=== PATIENT | female | born 1990 | race Asian ===

== ENCOUNTER 2024-08-16 20:35 | Emergency (ER) | payer OTHER, SELFPAY ==
--- NOTE | ~2024-08-16 | CT_ITS ---
EXAMINATION: CT abdomen pelvis wo con DATE: 08/16/2024 22:44 INDICATION: LEFT FLANK PAIN/NO HX OF STONES TECHNIQUE: Computed tomography (CT) of the abdomen and pelvis was performed without intravenous contr ast. Automated exposure control and iterative reconstruction technique were employed. The dose-length product was 181.85 mGy-cm. COMPARISON: None. FINDINGS: Lower thorax: Unremarkable Liver: Normal. Biliary/Gallbladder: Cholelithiasis. No inflammatory change. No bile duct dilation. Pancreas: No mass or duct dilation. Spleen: Normal. Adrenals:No mass. Kidneys: No suspicious mass, obstructing stone, or hydronephrosis. GI tract: No small or large bowel dilation. Appendix not confidently visualized. Mesentery/Peritoneum: No ascites, mass, or free air. Retroperitoneum: No mass. Pelvis: Pelvic organs are within normal limits. Soft Tissues: Soft tissues and body wall unremarkable. Bones: No acute osseous finding. IMPRESSION: No acute abdominopelvic process detected. Reviewed, dictated and finalized at location K.
[2024-08-16 20:40] VITALS: BP 131/99; PULSE 67; RESP 18; TEMP 36.1; O2SAT 100
--- NOTE | 2024-08-16 21:30 | PC.NURSE ---
patient ambulatory to bathroom at this time for urine specimen.
[2024-08-16 21:37] LABS: Basophils Absolute Auto 0.03 K/mm3 (0.00-0.10); Basophils Percent Auto 0.3 % (0.0-1.0); Eosinophils Absolute Auto 0.08 K/mm3 (0.02-0.50); Eosinophils Percent Auto 0.8 % (1.0-6.0); Hematocrit 39.6 % (35.0-49.0); Hemoglobin 12.8 g/dL (12.0-15.0); Immature Granulocyte Absolute 0.04 K/mm3 (0.00-0.00); Immature Granulocyte Percent A 0.4 % (0.0-0.0); Lymphocytes Absolute Auto 3.81 K/mm3 (1.10-4.50); Lymphocytes Percent Auto 38.3 % (18.0-42.0); Mean Corpuscular HGB Conc 32.3 g/dL (32-36); Mean Corpuscular Hemoglobin 28.7 pg (27.0-31.0); Mean Corpuscular Volume 88.8 fL (78.0-102.0); Mean Platelet Volume 8.7 fl (9.2-11.8); Monocytes Absolute Auto 0.49 K/mm3 (0.10-0.90); Monocytes Percent Auto 4.9 % (2.0-11.0); Neutrophils Percent Auto 55.3 % (50.0-70.0); Platelet Count Result 374 K/mm3 (150-420); Red Blood Count 4.46 M/mm3 (4.20-5.40); Red Cell Distribution Width 13.1 % (11.6-14.4)
[2024-08-16 21:39] LABS: Add Urine Microscopic? YES; Appearance Urine Clear (Clear); Bilirubin Urine Negative (Negative); Blood Urine Trace-intact (Negative); Color Urine Light Yellow (Yellow); Glucose Urine UA Negative (Negative); Ketones Urine Negative (Negative); Leukocyte Esterase Ur Trace LEU/UL (Negative); Nitrate Urine Negative (Negative); Protein Urine Negative (Negative); Urobilinogen Urine 0.2 mg/dL (0.2-1.0); pH Urine 6.5 (5.0-8.0)
[2024-08-16 21:45] LABS: Bacteria Urine 1+ /hpf; Squamous Epithelial Cell Urine Few /hpf (Few)
[2024-08-16 21:47] LABS: Pregnancy On Board Control Positive; Urine Pregnancy Test Negative
[2024-08-16 21:48] LABS: Alanine Aminotransferase 41 U/L (6-35); Albumin Level 4.7 g/dL (3.5-5.1); Alkaline Phosphatase 69 U/L (38-126); Anion Gap 9 mmol/L (4-12); Aspartate Amino Transferase 36 U/L (14-36); Bilirubin,Total 0.4 mg/dL (0.2-1.3); Blood Urea Nitrogen 11 mg/dL (7-17); Calcium 9.2 mg/dL (8.4-10.2); Carbon Dioxide 28 mmol/L (22-30); Chloride 103 mmol/L (98-107); Estimated Glomerular Filt Rate > 60; Glucose 113 mg/dL (65-110); Lipase 105 U/L (23-300); Osmolality Calculated 290 mOsm/kg (285-295); Potassium 3.1 mmol/L (3.4-5.0); Sodium 140 mmol/L (137-145)
[2024-08-16 21:49] LABS: Lactic Acid Reflex 1.7 mmol/L (0.4-2.0)
[2024-08-16 22:25] VITALS: BP 129/78; PULSE 58; RESP 18; TEMP 36.4; O2SAT 100
--- NOTE | 2024-08-16 22:29 | ED_ITS ---
HPI - General Adult General Chief complaint: Abdominal Pain Stated complaint: stomach pain Time Seen by Provider: 08/16/24 20:57 Source: patient and family Mode of arrival: ambulatory Limitations: no limitations History of Present Illness HPI narrative: 34-year-old [place] female complains of intermittent abdominal pain upper abdomen 9 days ago 6 days ago and today associated with vomiting and loose stools the last week she feels bloated she has no problems eating or drinking or voiding. She has had loose nonbloody stools. She rates her epigastric pain as an 8/10 she is not taking anything for the pain she describes as ache she has ache in the middle of her back she is not taking any pain medicines is worse when she walks around she denies any problems talking seeing or hearing shortness of breath chest pain cough fever sore throat runny nose dizziness or lightheadedness weakness or numbness rash or itching bleeding or bruising. Her last menstrual period was over a month ago she says they are always irregular. Denies any other complaints. Social history she works in the office. Past medical history she has no medical problems that she knows of she is followed by Dr. Ritchie. She denies any other complaints. Related Data Allergies Allergy/AdvReac Type Severity Reaction Status Date / Time No Known Allergies Allergy Verified 08/16/24 22:37 Review of Systems 2 Review of Systems: All systems reviewed & are unremarkable except as noted in HPI and below Exam 2 Narrative: White female patient with no apparent distress.? Head normocephalic, atraumatic.? Eyes conjunctiva pink sclera nonicteric.? Extraocular movements are intact.? Ears externally normal.? TMs are normal. ?Oropharynx is clear with moist mucous membranes without exudates.? Neck is supple nontender no lymphadenopathy.? Back is Mildly tender Mid thoracic area.? Lungs are clear.? Heart is regular rate and rhythm without murmurs gallops or rubs.? Chest wall nontender. Abdomen is soft and has mild epigastric tenderness with no hepatosplenomegaly or masses no CVA tenderness no abdominal bruits.? Extremities no cyanosis clubbing or edema.? Skin is warm and dry without rashes or lesions.? Neurological patient is alert and oriented x4.? Motor and sensory grossly intact.? Gait is normal. Course Vital Signs Vital signs: Vital Signs Temperature 36.1 C L 08/16/24 20:40 Pulse Rate 67 08/16/24 20:40 Respiratory Rate 18 08/16/24 20:40 Blood Pressure 131/99 H 08/16/24 20:40 Pulse Oximetry 100 08/16/24 20:40 Oxygen Delivery Room Air 08/16/24 20:40 Temperature 36.4 C L 08/16/24 22:25 Pulse Rate 58 L 08/16/24 22:25 Respiratory Rate 18 08/16/24 22:25 Blood Pressure 129/78 08/16/24 22:25 Pulse Oximetry 100 08/16/24 22:25 Oxygen Delivery Room Air 08/16/24 22:25 Medical Decision Making MDM Narrative Medical decision making narrative: Patient placed in room 4 with her Puneet history and physical were performed. Independent Historian: ? Puneet Differential Dx includes but not limited to: GERD kidney stones urinary tract infection pancreatitis Medications were Reviewed:? ? home meds reviewed Medications treatments given: Toradol 30 mg IM Protonix 40 mg p.o. with this she got relief of her pain. patient was given 40 mg of potassium K-Dur prior to discharge Independently Interpreted by me:? ? labs independently interpreted by me.? External Source Review:?? Medical conditions/social Situation Impacting Patients Care:?? Shared decision Making:? Evaluation was discussed with patient her all questions were asked and answered they agreed with the plan. patient with take 20 mEq of potassium for 10 days follow up with her primary care provider Dr. Ritchie recheck her potassium and also to check the culture results to see if she has a urinary tract infection she would take Protonix 40 mg daily avoid eating after 7:00 p.m. and avoid spicy foods and carbonated beverages like the barbecue that she said was making her pain worse. she could also take Zofran 4 mg oral dissolvable tablet every 4 hours as needed for nausea vomiting. ? Clinical impression:? ? Abdominal pain/ back pain nausea vomiting diarrhea, back pain ? Patient disposition: ? Discharge home ? Condition at discharge: stable improved Vital Signs Vital Signs: Vital Signs Temperature 36.1 C L 08/16/24 20:40 Pulse Rate 67 08/16/24 20:40 Respiratory Rate 18 08/16/24 20:40 Blood Pressure 131/99 H 08/16/24 20:40 Pulse Oximetry 100 08/16/24 20:40 Oxygen Delivery Room Air 08/16/24 20:40 Temperature 36.4 C L 08/16/24 22:25 Pulse Rate 58 L 08/16/24 22:25 Respiratory Rate 18 08/16/24 22:25 Blood Pressure 129/78 08/16/24 22:25 Pulse Oximetry 100 08/16/24 22:25 Oxygen Delivery Room Air 08/16/24 22:25 Lab Data 08/16/24 21:34 08/16/24 21:34 Labs: Lab Results 08/16/24 08/16/24 Range/Units 21:34 21:38 WBC 10.0 (4.8-10.8) K/mm3 RBC 4.46 (4.20-5.40) M/mm3 Hgb 12.8 (12.0-15.0) g/dL Hct 39.6 (35.0-49.0) % MCV 88.8 (78.0-102.0) fL MCH 28.7 (27.0-31.0) pg MCHC 32.3 (32-36) g/dL RDW 13.1 (11.6-14.4) % Plt Count 374 (150-420) K/mm3 MPV 8.7 L (9.2-11.8) fl Immature Gran % (Auto) 0.4 H (0.0-0.0) % Neut % (Auto) 55.3 (50.0-70.0) % Lymph % (Auto) 38.3 (18.0-42.0) % [place] % (Auto) 4.9 (2.0-11.0) % Eos % (Auto) 0.8 L (1.0-6.0) % Baso % (Auto) 0.3 (0.0-1.0) % Lymph # (Auto) 3.81 (1.10-4.50) K/mm3 [place] # (Auto) 0.49 (0.10-0.90) K/mm3 Eos # (Auto) 0.08 (0.02-0.50) K/mm3 Baso # (Auto) 0.03 (0.00-0.10) K/mm3 Abs Immat Gran (auto) 0.04 H (0.00-0.00) K/mm3 Absolute Neuts (auto) 5.50 (1.70-7.20) K/mm3 Absolute Nucleated RBC 0.00 (0.00-0.00) K/mm3 Nucleated RBC % 0.0 (0-0.0) % Sodium 140 (137-145) mmol/L Potassium 3.1 L (3.4-5.0) mmol/L Chloride 103 (98-107) mmol/L Carbon Dioxide 28 (22-30) mmol/L Anion Gap 9 (4-12) mmol/L BUN 11 (7-17) mg/dL Creatinine 0.86 (0.7-1.0) mg/dL Estim Creat Clear Calc Not Reportable Estimated GFR > 60 (59 - ) Glucose 113 H (65-110) mg/dL Calculated Osmolality 290 (285-295) mOsm/kg Lactic Acid 1.7 (0.4-2.0) mmol/L Calcium 9.2 (8.4-10.2) mg/dL Total Bilirubin 0.4 (0.2-1.3) mg/dL AST 36 (14-36) U/L ALT 41 H (6-35) U/L Alkaline Phosphatase 69 (38-126) U/L Total Protein 8.0 (6.3-8.2) g/dL Albumin 4.7 (3.5-5.1) g/dL Lipase 105 (23-300) U/L Urine Color Light yellow (Yellow) Urine Appearance Clear (Clear) Urine pH 6.5 (5.0-8.0) Ur Specific [place] 1.020 (1.010-1.020) Urine Protein Negative (Negative) Urine Glucose (UA) Negative (Negative) Urine Ketones Negative (Negative) Ur Blood (Man) Trace-intact H (Negative) Urine Nitrate Negative (Negative) Urine Bilirubin Negative (Negative) Urine Urobilinogen 0.2 (0.2-1.0) mg/dL Leukocyte Esterase Rfl Trace H (Negative) JENNIE/UL Urine RBC 3-5 H (0-2) /hpf Urine WBC 4-6 H (0-3) /hpf Ur Squamous Epith Cells Few (Few) /hpf Urine Bacteria 1+ H (None) /hpf Urine Test Negative Discharge Plan Discharge Clinical Impression: Nausea vomiting and diarrhea Abdominal pain Qualifiers: Abdominal location: upper abdomen, unspecified Qualified Code(s): R10.10 - Upper abdominal pain, unspecified Back pain Qualifiers: Back pain location: thoracic back pain Chronicity: acute Back pain laterality: midline Qualified Code(s): M54.6 - Pain in thoracic spine Patient Disposition: Home Condition: Stable Instructions: Acute Nausea and Vomiting (ED), Abdominal Pain (ED), Back Pain (ED) Additional Instructions: take Protonix 40 mg daily. Take potassium 20 mEq daily. Do not eat after 7:00 p.m. avoid spicy irritating foods and carbonated beverages. Take Zofran 4 mg oral dissolvable tablet under the tongue every 4 hours as needed for nausea or vomiting. Follow-up with your primary care provider this week Dr. Ritchie have the doctor checked her culture results of your urine to make sure you do not have a bladder infection and need antibiotics. Also have Dr. Ritchie recheck her potassium and discuss further evaluation of your pain and discuss further treatment if any needed. Patient Language: Chinese Prescriptions: New pantoprazole [Protonix] [address] for susp in packet 40 mg PO DAILY Qty: 10 0RF potassium chloride [K-Tab] 20 mEq tablet extended release 20 meq PO DAILY Qty: 10 0RF ondansetron 4 mg tablet,disintegrating 4 mg PO Q4H PRN (Reason: nausea and vomiting) 3 Days Qty: 12 0RF Rx Instructions: give 1st dose 30min before emetogenic chemo potassium chloride [K-Tab] 20 mEq tablet extended release 20 meq PO DAILY 10 Days Qty: 10 0RF pantoprazole [Protonix] 40 mg tablet,delayed release (DR/EC) 40 mg PO HS 10 Days Qty: 10 0RF Follow-up/Referrals: Mariano Ritchie MD [Primary Care Provider] - Time of Disposition: 00:10
--- NOTE | 2024-08-16 22:35 | PC.NURSE ---
patient to CT scan via wheelchair per grade and center marker.
--- NOTE | 2024-08-16 22:44 | PC.NURSE ---
patient returned from imaging.
[2024-08-16] MEDS: KETOROLAC 30 MG/ML VIAL (*BKC) IV PUSH (23:04)
[2024-08-16] MEDS: PANTOPRAZOLE 40 MG TABLET PO (23:04)
--- NOTE | 2024-08-16 23:09 | PC.NURSE ---
patient medicated per order, see MAR. spouse at bedside. call light harinder [place].
--- NOTE | 2024-08-16 23:54 | PC.NURSE ---
ERP at patient bedside providing update of results and plan of care to patient and her spouse.
[2024-08-17] MEDS: POTASSIUM CHLORIDE 20 MEQ ER TABLET 40 MEQ PO (00:12)
[2024-08-17 00:15] VITALS: BP 118/84; PULSE 80; RESP 18; TEMP 36.1; O2SAT 98
--- NOTE | 2024-08-19 12:42 | PC.NURSE ---
final urine culture reviewed. no growth. no change in plan of care
== END 2024-08-17 00:20 | disposition home or self-care (01) ==
PROVIDERS: Emergency Provider Emergency Medicine; PCP Internal Medicine
DX: R10.10 Upper abdominal pain, unspecified (principal); R11.2 Nausea with vomiting, unspecified; R19.7 Diarrhea, unspecified; M54.6 Pain in thoracic spine
CPT/HCPCS: 36415; 74176; 80053; 81001; 81025; 83605; 83690; 85025; 87086; 96374; 99284; A9270; J1885

== ENCOUNTER 2024-08-21 12:12 | Emergency (ER) | payer OTHER, SELFPAY ==
--- NOTE | ~2024-08-21 | CT_ITS ---
EXAMINATION: CT abdomen pelvis w con DATE: 08/21/2024 13:58 INDICATION: Epigastric pain, Nausea/ vomiting/ diarrhea x2 weeks TECHNIQUE: Computed tomography (CT) of the abdomen and pelvis was performed with 100 mL Omnipaque-350 intravenous contrast. Automated exposure control and iterative reconstruction technique were employe d. The dose-length product was 287.36 mGy-cm. COMPARISON: 08/16/2024. FINDINGS: Lower thorax: Unremarkable Liver: Normal. Biliary/Gallbladder: Cholelithiasis. No inflammatory change. No bile duct dilation. Pancreas: No mass or duct dilation. Spleen: Normal. Adrenals:No mass. Kidneys: No suspicious mass, obstructing stone, or hydronephrosis. Simple right upper pole cyst. Righ t renal hypodensities too small to characterize but most likely represent cysts. GI tract: No small or large bowel dilation. Normal appendix. Mesentery/Peritoneum: No ascites, mass, or free air. Retroperitoneum: No mass. Pelvis: Pelvic organs are within normal limits. Soft Tissues: Soft tissues and body wall unremarkable. Bones: No acute osseous finding. IMPRESSION: No acute abdominopelvic process detected. Reviewed, dictated and finalized at location K.
[2024-08-21 12:15] VITALS: BP 124/79; PULSE 86; RESP 20; TEMP 36.7; O2SAT 100
--- NOTE | 2024-08-21 12:18 | ED_ITS ---
HPI - Abdominal Pain General Chief Complaint: Abdominal Pain Stated Complaint: ABD/BACK PAIN Time Seen by Provider: 08/21/24 12:18 Source: patient Mode of arrival: ambulatory Limitations: no limitations History of Present Illness HPI narrative: 34-year-old female presents to the ED with -- recurrent epigastric pain with nausea and vomiting. The patient had a similar episode on for which she presented to the ED on 08/16/2024. Her workup at that time was unremarkable. She had an episode prior to that with epigastric pain /nausea / vomiting. No fever or chills. No radiation of the pain. No exacerbating or relieving factors. Patient has frequent burping. No history of alcohol use / NSAID use. after she has been using the Protonix her pain has decreased. MD elicited complaint: other ( Epigastric pain) Pertinent past history: none Onset (ago): week(s) Pain Consistency: intermittent Location: epigastric Severity: mild Quality: aching Radiation: none Migration to: no migration Exacerbating factors: eating Relieving factors: nothing Associated symptoms: denies other symptoms, nausea and vomiting Related Data Allergies Allergy/AdvReac Type Severity Reaction Status Date / Time No Known Allergies Allergy Verified 08/16/24 22:37 Review of Systems 2 Review of Systems: All systems reviewed & are unremarkable except as noted in HPI and below Constitutional: Constitutional: Reports as per HPI and Reports no additional constitutional complaints Eyes: Eyes: Reports as per HPI and Reports no additional eye complaints ENT: Reports system reviewed and no additional complaints, except as documented and Reports as per HPI Cardiovascular: Cardiovascular: Reports as per HPI and Reports no additional cardiovascular complaints Respiratory: Respiratory: Reports as per HPI and Reports no additional respiratory complaints Gastrointestinal: Gastrointestinal: Reports as per HPI and Reports no additional gastrointestinal complaints Comments: Epigastric pain with nausea and vomiting. No hematemesis or melena Genitourinary: Genitourinary: Reports no additional female genitourinary complaints Musculoskeletal: Musculoskeletal: Reports no additional musculoskeletal complaints and Reports as per HPI Integumentary/Breasts: Skin/Breast: Reports system reviewed and no additional complaints, except as docu Neurologic: Reports system reviewed and no additional complaints, except as documented and Reports as per HPI Psychiatric: Psychiatric: Reports no additional psychiatric complaints and Reports as per HPI Endocrine: Endocrine: Reports no additional endocrine complaints and Reports as per HPI Hematologic/Lymphatic: Hematologic/Lymphatic: Reports no additional hematologic/lymphatic complaints and Reports as per HPI Allergic/Immunologic: Allergic/Immunologic: Reports no additional allergic/immunologic complaints and Reports as per HPI Exam 2 Narrative: vitals are stable. Afebrile. Const: General: healthy appearing and no acute distress Nutritional Appearance: well nourished Orientation/consciousness: patient oriented x3 Limitations: no limitations HENMT: Head: normal to inspection Ears: external ears normal F gabi/Nose/Sinus: Normal external nose present Mouth: Yes Normal oral and palatal mucosa present Throat: posterior oropharynx normal Eyes: Conjunctivae: conjunctivae normal Pupils: Equal, round and reactive pupils present EOM: EOMs intact bilaterally Direct Ophthalmoscopy: no photophobia Neck: Neck: normal visual inspection, no lymphadenopathy and no meningeal signs Chest: Chest palpation & inspection: normal inspection of the chest Resp: Effort & Inspection: normal respiratory effort Auscultation: clear to auscultation bilaterally Cardio: Rate: regular rate Rhythm: regular rhythm GI: GI Palp: Yes Soft to palpation Auscultation: normal bowel sounds O ther: Epigastric tenderness without any rigidity / rebound. : General: Yes no CVA tenderness Back/Spine/Pelvis: Back: no CVA tenderness Skin: General skin exam: normal color Rashes: no rashes Wounds: no wounds Course Course Emergency Course: intermittent epigastric pain-- normal white cell count. Elevated lactate. LFTs elevated. Normal bilirubin/normal alkaline phosphate . CT did not show any acute finding. discussed with the patient regarding getting an ultrasound of the abdomen. Advised her to take back p.o. clears, Zofran and pain meds. Advised to follow up with the primary care physician. Vital Signs Vital signs: Vital Signs Temperature 36.7 C 08/21/24 12:15 Pulse Rate 86 08/21/24 12:15 Respiratory Rate 08/21/24 12:15 Blood Pressure 124/79 08/21/24 12:15 Pulse Oximetry 100 08/21/24 12:15 Oxygen Delivery Room Air 08/21/24 12:15 Temperature 36.7 C 08/21/24 12:15 Pulse Rate 86 08/21/24 12:15 Respiratory Rate 20 08/21/24 12:15 Blood Pressure 124/79 08/21/24 12:15 Pulse Oximetry 100 08/21/24 12:15 Oxygen Delivery Room Air 08/21/24 12:15 MDM - Abdominal Pain MDM Narrative Medical decision making narrative: epigastric pain transaminitis Differential Diagnosis Differential diagnosis: Likely pancreatitis Medical Records Attestation: I reviewed the patient's medical records. Lab Data Attestation: I reviewed the patient's lab results. 08/21/24 12:44 08/21/24 12:44 Labs: Lab Results 08/21/24 08/21/24 08/21/24 Range/Units 12:32 12:40 12:44 WBC 9.3 (4.8-10.8) K/mm3 RBC 4.22 (4.20-5.40) M/mm3 Hgb 12.4 (12.0-15.0) g/dL Hct 37.8 (35.0-49.0) % MCV 89.6 (78.0-102.0) fL MCH 29.4 (27.0-31.0) pg MCHC 32.8 (32-36) g/dL RDW 12.9 (11.6-14.4) % Plt Count 356 (150-420) K/mm3 MPV 9.0 L (9.2-11.8) fl Immature Gran % (Auto) 0.4 H (0.0-0.0) % Neut % (Auto) 74.2 H (50.0-70.0) % Lymph % (Auto) 20.6 (18.0-42.0) % [place] % (Auto) 4.5 (2.0-11.0) % Eos % (Auto) 0.1 L (1.0-6.0) % Baso % (Auto) 0.2 (0.0-1.0) % Lymph # (Auto) 1.92 (1.10-4.50) K/mm3 [place] # (Auto) 0.42 (0.10-0.90) K/mm3 Eos # (Auto) 0.01 L (0.02-0.50) K/mm3 Baso # (Auto) 0.02 (0.00-0.10) K/mm3 Abs Immat Gran (auto) 0.04 H (0.00-0.00) K/mm3 Absolute Neuts (auto) 6.90 (1.70-7.20) K/mm3 Absolute Nucleated RBC 0.00 (0.00-0.00) K/mm3 Nucleated RBC % 0.0 (0-0.0) % Sodium 136 L (137-145) mmol/L Potassium 4.0 (3.4-5.0) mmol/L Chloride 105 (98-107) mmol/L Carbon Dioxide 25 (22-30) mmol/L Anion Gap 6 (4-12) mmol/L BUN 4 L D (7-17) mg/dL Creatinine 0.67 L (0.7-1.0) mg/dL Estim Creat Clear Calc 87 ml/min Estimated GFR > 60 (59 - ) Glucose 114 H (65-110) mg/dL Calculated Osmolality 279 L (285-295) mOsm/kg Lactic Acid 2.4 H (0.4-2.0) mmol/L Calcium 8.4 (8.4-10.2) mg/dL Total Bilirubin 0.8 (0.2-1.3) mg/dL AST 717 H (14-36) U/L ALT 358 H (6-35) U/L Alkaline Phosphatase 69 (38-126) U/L Troponin I < 0.012 (0.000-0.034) ng/mL Total Protein 7.6 (6.3-8.2) g/dL Albumin 4.4 (3.5-5.1) g/dL Lipase 83 (23-300) U/L Urine Color Light yellow (Yellow) Urine Appearance Clear (Clear) Urine pH 7.5 (5.0-8.0) Ur Specific [place] 1.015 (1.010-1.020) Urine Protein Negative (Negative) Urine Glucose (UA) Negative (Negative) Urine Ketones Negative (Negative) Ur Blood (Man) Trace-intact H (Negative) Urine Nitrate Negative (Negative) Urine Bilirubin Negative (Negative) Urine Urobilinogen 0.2 (0.2-1.0) mg/dL Leukocyte Esterase Rfl Trace H (Negative) JENNIE/UL Urine RBC 6-10 H (0-2) /hpf Urine WBC 0-3 (0-3) /hpf Ur Squamous Epith Cells Many H (Few) /hpf Urine Bacteria None seen (None) /hpf Ur Oval Fat Bodies None (None) /lpf Urine Test Negative Imaging Data Radiologist's impression: ITS Impressions Abdomen/Pelvis CT 08/21/24 14:03 IMPRESSION: No acute abdominopelvic process detected. Discharge Plan Discharge Clinical Impression: Chronic epigastric pain, Transaminitis Patient Disposition: Home Condition: Stable Instructions: Antibiotic Form, Epigastric Pain (ED), Transaminitis (ED) Patient Language: B[place]udian Prescriptions: New hydrocodone-acetaminophen 5-325 mg tablet 1 tablet PO Q8H PRN (Reason: pain) Qty: 14 0RF ondansetron 4 mg tablet,disintegrating 4 mg PO Q6H PRN (Reason: nausea and vomiting) Qty: 14 0RF No Action pantoprazole [Protonix] [address] for susp in packet 40 mg PO DAILY Qty: 10 0RF potassium chloride [K-Tab] 20 mEq tablet extended release 20 meq PO DAILY Qty: 10 0RF ondansetron 4 mg tablet,disintegrating 4 mg PO Q4H PRN (Reason: nausea and vomiting) 3 Days Qty: 12 0RF Rx Instructions: give 1st dose 30min before emetogenic chemo potassium chloride [K-Tab] 20 mEq tablet extended release 20 meq PO DAILY 10 Days Qty: 10 0RF pantoprazole [Protonix] 40 mg tablet,delayed release (DR/EC) 40 mg PO HS 10 Days Qty: 10 0RF Follow-up/Referrals: Mariano Ritchie MD [Primary Care Provider] - Time of Disposition: 14:57
[2024-08-21 12:50] LABS: Basophils Absolute Auto 0.02 K/mm3 (0.00-0.10); Basophils Percent Auto 0.2 % (0.0-1.0); Eosinophils Absolute Auto 0.01 K/mm3 (0.02-0.50); Eosinophils Percent Auto 0.1 % (1.0-6.0); Hematocrit 37.8 % (35.0-49.0); Hemoglobin 12.4 g/dL (12.0-15.0); Immature Granulocyte Absolute 0.04 K/mm3 (0.00-0.00); Immature Granulocyte Percent A 0.4 % (0.0-0.0); Lymphocytes Absolute Auto 1.92 K/mm3 (1.10-4.50); Lymphocytes Percent Auto 20.6 % (18.0-42.0); Mean Corpuscular HGB Conc 32.8 g/dL (32-36); Mean Corpuscular Hemoglobin 29.4 pg (27.0-31.0); Mean Corpuscular Volume 89.6 fL (78.0-102.0); Monocytes Absolute Auto 0.42 K/mm3 (0.10-0.90); Monocytes Percent Auto 4.5 % (2.0-11.0); Neutrophils Percent Auto 74.2 % (50.0-70.0); Platelet Count Result 356 K/mm3 (150-420); Red Blood Count 4.22 M/mm3 (4.20-5.40); Red Cell Distribution Width 12.9 % (11.6-14.4); White Blood Count 9.3 K/mm3 (4.8-10.8)
[2024-08-21 12:56] LABS: Add Urine Microscopic? YES; Appearance Urine Clear (Clear); Bilirubin Urine Negative (Negative); Blood Urine Trace-intact (Negative); Color Urine Light Yellow (Yellow); Glucose Urine UA Negative (Negative); Ketones Urine Negative (Negative); Leukocyte Esterase Ur Trace LEU/UL (Negative); Nitrate Urine Negative (Negative); Protein Urine Negative (Negative); Specific Grav Ur 1.015 (1.010-1.020); Urobilinogen Urine 0.2 mg/dL (0.2-1.0); pH Urine 7.5 (5.0-8.0)
[2024-08-21 13:01] LABS: Pregnancy On Board Control Positive; Urine Pregnancy Test Negative
[2024-08-21 13:03] LABS: Bacteria Urine None Seen /hpf; Squamous Epithelial Cell Urine Many /hpf (Few); WBC Urine 0-3 /hpf (0-3)
[2024-08-21 13:04] LABS: Alanine Aminotransferase 358 U/L (6-35); Albumin Level 4.4 g/dL (3.5-5.1); Alkaline Phosphatase 69 U/L (38-126); Anion Gap 6 mmol/L (4-12); Aspartate Amino Transferase 717 U/L (14-36); Bilirubin,Total 0.8 mg/dL (0.2-1.3); Blood Urea Nitrogen 4 mg/dL (7-17); Calcium 8.4 mg/dL (8.4-10.2); Carbon Dioxide 25 mmol/L (22-30); Chloride 105 mmol/L (98-107); Estimated CRCL calculation 87 ml/min; Estimated Glomerular Filt Rate > 60; Glucose 114 mg/dL (65-110); Osmolality Calculated 279 mOsm/kg (285-295); Sodium 136 mmol/L (137-145); Total Protein 7.6 g/dL (6.3-8.2)
[2024-08-21 13:05] LABS: Lactic Acid Reflex 2.4 mmol/L (0.4-2.0)
[2024-08-21 13:17] LABS: Troponin I < 0.012 ng/mL (0.000-0.034)
[2024-08-21] MEDS: LACTATED RINGERS 1,000 ML 999 ML IV CONT (13:38)
[2024-08-21] MEDS: ONDANSETRON INJ 4 MG/2 ML VIAL IV PUSH (13:39)
[2024-08-21] MEDS: HYDROmorphone HCL INJ (*CRX) 2 MG/ML VIAL 0.5 MG IV PUSH (13:40)
[2024-08-21 14:42] LABS: Lipase 83 U/L (23-300)
[2024-08-21 14:47] LABS: Reflex Lactic Acid Yes or No Add Lactic
[2024-08-21 15:25] VITALS: BP 132/72; PULSE 62; RESP 16; TEMP 36.4; O2SAT 100
== END 2024-08-21 15:40 | disposition home or self-care (01) ==
PROVIDERS: Emergency Provider Internal Medicine Critical Care Medicine; PCP Internal Medicine
DX: R10.13 Epigastric pain (principal); G89.29 Other chronic pain; R74.01 Elevation of levels of liver transaminase levels
CPT/HCPCS: 36415; 74177; 80053; 81001; 81025; 83605; 83690; 84484; 85025; 96361; 96374; 96375; 99284; J1171; J2405; J7120; Q9967

== ENCOUNTER 2024-09-04 08:10 | Outpatient (CLI) | payer OTHER, SELFPAY ==
--- NOTE | ~2024-09-04 | US_ITS ---
Limited Abdominal Sonogram: Real-time sonographic imaging of the right upper quadrant was performed. Clinical History: Abdominal pain Findings: The liver appears normal with no evidence of mass lesion or bile duct dilatation. Main por kamran vein demonstrates normal direction of flow. The gallbladder is well distended, and doses probable shadowing gallstones or gallbladder neck. No gallbladder wall thickening. The common bile duct measu res 3 mm. The visualized pancreas, aorta, and IVC are unremarkable. Impression: Probable gallstone at the gallbladder neck. Reviewed, dictated and finalized at location M. Impression: Probable gallstone at the gallbladder neck.
== END 2024-09-04 08:11 | disposition home or self-care (01) ==
LOC: MICIMG 08:11
PROVIDERS: PCP Internal Medicine; Visit Provider Internal Medicine
DX: R10.11 Right upper quadrant pain (principal); R10.13 Epigastric pain
CPT/HCPCS: 76705